=== PATIENT | female | born 1985 | race American Indian/Alaskan Native ===

== ENCOUNTER 2022-02-23 04:39 | Emergency (ER) | payer SELFPAY ==
[2022-02-23] MEDS ORDERED: SODIUM CHLORIDE 0.9% 500 ML 500 ML IV ONE (12:28)
[2022-02-23] MEDS ORDERED: ASPIRIN 325 MG TAB PO ONE (12:28)
[2022-02-23] MEDS ORDERED: ALUM-MAG HYDROXIDE-SIMETHICONE 200-200-20MG/5ML ORAL LIQD 30 ML PO ONE (12:29)
--- NOTE | 2022-02-23 12:59 | XRay Report ---
CHEST 2 VIEWS INDICATION / CLINICAL INFORMATION: Chest Pain. FINDINGS: SUPPORT DEVICES: None. HEART / MEDIASTINUM: No significant abnormality. LUNGS / PLEURA: No significant pulmonary or pleural abnormality. No pneumothorax. ADDITIONAL FINDINGS: No significant additional findings. IMPRESSION: 1. No acute findings. Signer Name: Graham Armando MD Signed: 02/23/2022 12:54 PM Workstation Name: [email or web address]
[2022-02-23 13:37] LABS: Basophils % (Auto) 0.3 % (0.0-1.8); Eosinophils % (Auto) 0.5 % (0.0-4.3); Hematocrit 36.4 % (30.3-42.9); Hemoglobin 12.8 gm/dl (10.1-14.3); Lymphocytes # (Auto) 1.6 K/mm3 (1.2-5.4); Lymphocytes % (Auto) 27.5 % (13.4-35.0); Mean Corpuscular HGB Conc 35 % (30-34); Mean Corpuscular Volume 89 fl (79-97); Monocytes # (Auto) 0.2 K/mm3 (0.0-0.8); Monocytes % (Auto) 4.3 % (0.0-7.3); Platelet Count 297 K/mm3 (140-440); Red Cell Distribution Width 13.8 % (13.2-15.2)
[2022-02-23 13:50] LABS: INR 0.9 (0.87-1.13)
[2022-02-23 13:52] LABS: Alanine Aminotransferase 14 units/L (7-56); Albumin 4.2 g/dL (3.9-5); Blood Urea Nitrogen 4 mg/dL (7-17); Calcium 9.3 mg/dL (8.4-10.2); Hemolysis Index 4
[2022-02-23 14:06] LABS: BUN/Creatinine Ratio 7
--- NOTE | 2022-02-23 14:24 | Emergency Department Report ---
ED Chest Pain HPI - General Chief Complaint: Chest Pain Stated Complaint: CHEST PAIN Time Seen by Provider: 02/23/22 12:23 Source: patient Mode of arrival: Wheelchair Limitations: No Limitations - History of Present Illness Initial Comments: Reporting chest tightness tonight. Denies WARREN. roger is tightness , on and off , has been seen 5 years ago at [facility] and was told she needs echo and stent . pt is on nvega for mental health -: Gradual, week(s) Onset: during rest Pain Location: substernal Pain Radiation: none Severity scale (0 -10): 10 Quality: tightness Consistency: intermittent Improves With: nothing Worsens With: nothing Treatments Prior to Arrival: none - Related Data On Oral Contraceptives: No Home Medications Medication Instructions Recorded Confirmed Last Taken No Known Home Medications [No 02/23/22 02/23/22 Unknown Reported Home Medications] Allergies Allergy/AdvReac Type Severity Reaction Status Date / Time No Known Allergies Allergy Verified 02/23/22 12:28 Heart Score - HEART Score History: Slightly suspicious EKG: Normal Age: < 45 Risk factors: 1-2 risk factors Troponin: < normal limit HEART Score: 1 - EKG Read Time Time EKG Completed: 04:57 EKG Read Time: 04:57 - Critical Actions Critical Actions: 0-3 pts:0.9-1.7%risk of adverse cardiac event.Candidate for talib toth ED Review of Systems ROS: Stated complaint: CHEST PAIN Other details as noted in HPI Constitutional: denies: chills, fever Eyes: denies: eye pain, eye discharge, vision change ENT: denies: ear pain, throat pain Respiratory: denies: cough, shortness of breath, wheezing Cardiovascular: denies: chest pain, palpitations Endocrine: no symptoms reported Gastrointestinal: denies: abdominal pain, nausea, diarrhea Genitourinary: denies: urgency, dysuria, discharge Musculoskeletal: denies: back pain, joint swelling, arthralgia Skin: denies: rash, lesions Neurological: denies: headache, weakness, paresthesias Psychiatric: denies: anxiety, depression Hematological/Lymphatic: denies: easy bleeding, easy bruising ED Past Medical Hx - Past Medical History Previous Medical History?: Yes Hx Hypertension: No Hx CVA: Yes Hx Diabetes: Yes Hx Asthma: Yes - Surgical History Past Surgical History?: No - Social History Smoking Status: Never Smoker Substance Use Type: None - Medications Home Medications: Home Medications Medication Instructions Recorded Confirmed Last Taken Type No Known Home Medications [No 02/23/22 02/23/22 Unknown History Reported Home Medications] ED Physical Exam - General Limitations: No Limitations General appearance: alert, in no apparent distress - Head Head exam: Present: atraumatic, normocephalic - Eye Eye exam: Present: normal appearance - ENT ENT exam: Present: mucous membranes moist - Neck Neck exam: Present: normal inspection - Respiratory Respiratory exam: Present: normal lung sounds bilaterally. Absent: respiratory distress - Cardiovascular Cardiovascular Exam: Present: regular rate, normal rhythm. Absent: systolic murmur, diastolic murmur, rubs, gallop - GI/Abdominal GI/Abdominal exam: Present: soft, normal bowel sounds - Extremities Exam Extremities exam: Present: normal inspection - Back Exam Back exam: Present: normal inspection - Neurological Exam Neurological exam: Present: alert, oriented X3 - Psychiatric Psychiatric exam: Present: normal affect, normal mood - Skin Skin exam: Present: warm, dry, intact, normal color. Absent: rash ED Course Vital Signs 02/23/22 02/23/22 05:33 12:27 Temperature 98 F 98.9 F Pulse Rate 74 77 Respiratory 20 18 Rate Blood Pressure 133/76 Blood Pressure 152/89 [Right] O2 Sat by Pulse 100 97 Oximetry ED Medical Decision Making - Lab Data Result diagrams: 02/23/22 12:53 02/23/22 12:53 - EKG Data -: EKG Interpreted by Md EKG shows normal: sinus rhythm Rate: normal - Radiology Data Radiology results: report reviewed, image reviewed - Medical Decision Making work up nge , low HEART score, will refer to OP card for further work up Critical care attestation.: If time is entered above; I have spent that time in minutes in the direct care of this critically ill patient, excluding procedure time. ED Disposition Clinical Impression: Chest pain, Gastritis Disposition: HOME / SELF CARE / HOMELESS Is pt being admited?: No Does the pt Need Aspirin: No Condition: Stable Instructions: Gastritis, Adult, Nonspecific Chest Pain, Adult Referrals: RICHARD COPELAND MD [Primary Care Provider] - 3-5 Days
[2022-02-23 14:39] VITALS: BP 124/69
--- NOTE | 2022-02-24 13:38 | Electrocardiograph Report ---
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
== END 2022-02-23 14:39 | disposition home or self-care (01) ==
LOC: ED 04:39
DX: K29.70 Gastritis, unspecified, without bleeding (principal); Z79.899 Other long term (current) drug therapy
CPT/HCPCS: 36415; 71046; 80053; 82550; 83690; 84484; 85025; 85610; 93005; 99284; J7040

== ENCOUNTER 2022-02-26 07:48 | Emergency (ER) | payer SELFPAY ==
--- NOTE | 2022-02-26 08:25 | Emergency Department Report ---
ED Abdominal Pain HPI - General Chief Complaint: Arrhythmia/Palpitations Stated Complaint: GENERAL SICKNESS Time Seen by Provider: 02/26/22 08:11 Source: EMS Mode of arrival: Stretcher Limitations: No Limitations - History of Present Illness Initial Comments: 36-year-old female presents with epigastric pain that started last night. Patient reports heavy drinking last night as well including beer, whiskey, and marybel. Patient denies any fever or chills. She has tried Mylanta with some improvement. She also reported that she completed menstrual period yesterday. Patient also mentioned left nipple discomfort. No other modifying or positive factors reported. - Related Data Previous Rx's Medication Instructions Recorded Last Taken Type Famotidine [Pepcid] 20 mg PO BID #30 tablet 02/23/22 Unknown Rx Mag Hydrox/Aluminum Hyd/Simeth 148 ml PO DAILY #120 02/23/22 Unknown Rx [Maalox Advanced Suspension] Omeprazole Magnesium [PriLOSEC Otc] 20 mg PO BID 30 Days #60 tab NS 02/26/22 Unknown Rx Allergies Allergy/AdvReac Type Severity Reaction Status Date / Time No Known Allergies Allergy Verified 02/23/22 12:28 ED Review of Systems ROS: Stated complaint: GENERAL SICKNESS Other details as noted in HPI Comment: All other systems reviewed and negative Cardiovascular: denies: chest pain Gastrointestinal: abdominal pain (Epigastrium) ED Past Medical Hx - Past Medical History Hx Hypertension: No Hx CVA: Yes Hx Diabetes: Yes Hx Asthma: Yes - Social History Smoking Status: Never Smoker Substance Use Type: None - Medications Home Medications: Home Medications Medication Instructions Recorded Confirmed Last Taken Type Famotidine [Pepcid] 20 mg PO BID #30 tablet 02/23/22 Unknown Rx Mag Hydrox/Aluminum Hyd/Simeth 148 ml PO DAILY #120 02/23/22 Unknown Rx [Maalox Advanced Suspension] Omeprazole Magnesium [PriLOSEC Otc] 20 mg PO BID 30 Days #60 tab NS 02/26/22 Unknown Rx ED Physical Exam - General Limitations: No Limitations General appearance: alert, in no apparent distress - Head Head exam: Present: atraumatic, normocephalic, normal inspection - Eye Eye exam: Present: normal appearance Pupils: Present: normal accommodation - ENT ENT exam: Present: normal exam, normal orophraynx - Neck Neck exam: Present: normal inspection, full ROM - Respiratory Respiratory exam: Present: normal lung sounds bilaterally. Absent: respiratory distress - Cardiovascular Cardiovascular Exam: Present: regular rate, normal rhythm, normal heart sounds - GI/Abdominal GI/Abdominal exam: Present: soft, tenderness (Epigastric tenderness), normal bowel sounds - Back Exam Back exam: Present: normal inspection, full ROM - Neurological Exam Neurological exam: Present: alert, altered, oriented X3 - Psychiatric Psychiatric exam: Present: normal affect, normal mood - Skin Skin exam: Present: warm, intact, normal color ED Course Vital Signs 02/26/22 02/26/22 02/26/22 07:57 08:31 10:01 Temperature 98.0 F Pulse Rate 124 H 105 H 102 H Respiratory 16 14 22 Rate Blood Pressure 131/95 139/95 Blood Pressure 142/94 [Right] O2 Sat by Pulse 97 99 100 Oximetry 02/26/22 02/26/22 02/26/22 10:26 10:32 12:01 Temperature Pulse Rate 98 H 102 H Respiratory 18 24 Rate Blood Pressure 131/96 Blood Pressure 130/96 [Right] O2 Sat by Pulse 99 100 100 Oximetry - Reevaluation(s) Reevaluation #1: 02/26/22 08:25 Here with abdominal pain --but noted with epigastric tenderness with this patient recent heavy alcohol use has symptoms could be as a result of pancreatitis so we will go ahead and get CBC, CMP, including lipase with urinalysis and urine drug screen. Given GI cocktail and will continue to monitor. However because of the proximity of her pain we will go ahead and get EKG, and troponin to rule out any cardiac involvement. Reevaluation #2: 02/26/22 12:26 Patient labs reviewed and noted to be within normal limits and reassuring including cardiac enzyme and EKG only shows sinus tachycardia. Also noted with normal lipase with epigastric tenderness this is likely gastritis from alcohol drink. We will go ahead and discharge patient home on omeprazole and warning to cut back on alcohol drink with close follow-up with your primary doctor. ED Medical Decision Making - Lab Data Result diagrams: 02/26/22 09:07 02/26/22 09:07 Critical care attestation.: If time is entered above; I have spent that time in minutes in the direct care of this critically ill patient, excluding procedure time. ED Disposition Clinical Impression: Epigastric abdominal pain Gastritis Qualifiers: Gastritis type: alcoholic Chronicity: unspecified Gastritis bleeding: presence of bleeding unspecified Qualified Code(s): K29.20 - Alcoholic gastritis without bleeding Disposition: 01 HOME / SELF CARE / HOMELESS Is pt being admited?: No Does the pt Need Aspirin: No Condition: Stable Instructions: Gastritis, Adult, [id number] Additional Instructions: Please cut back on alcohol drink as this is likely contributing to your symptoms Increase your daily fluid to help your hydration Take your omeprazole as prescribed to help your symptoms Avoid heavy fatty meals as this could worsen your symptoms It is important that you call and follow-up with your primary doctor in the next 3 to 5 days for progress Please do not hesitate to call or return to emergency room if your symptoms worsen Prescriptions: Omeprazole Magnesium [PriLOSEC Otc] 20 mg PO BID 30 Days #60 tab NS Time of Disposition: 12:30
[2022-02-26] MEDS ORDERED: ALUM-MAG HYDROXIDE-SIMETHICONE 200-200-20MG/5ML ORAL LIQD 30 ML PO ONE (09:05)
[2022-02-26] MEDS ORDERED: LIDOCAINE VISCOUS 2% 15 ML ORAL LIQD PO ONE ×2 (09:06→09:18)
[2022-02-26] MEDS ORDERED: PHENobarbital 15 MG TAB PO NR (09:15)
[2022-02-26 09:57] LABS: Basophils % (Auto) 0.7 % (0.0-1.8); Eosinophils # (Auto) 0.1 K/mm3 (0.0-0.4); Eosinophils % (Auto) 1.6 % (0.0-4.3); Hemoglobin 13.6 gm/dl (10.1-14.3); Lymphocytes # (Auto) 1.7 K/mm3 (1.2-5.4); Lymphocytes % (Auto) 33.3 % (13.4-35.0); Mean Corpuscular HGB Conc 33 % (30-34); Mean Corpuscular Volume 90 fl (79-97); Monocytes # (Auto) 0.2 K/mm3 (0.0-0.8); Monocytes % (Auto) 3.7 % (0.0-7.3); Platelet Count 320 K/mm3 (140-440); Red Blood Count 4.56 M/mm3 (3.65-5.03); Red Cell Distribution Width 14.3 % (13.2-15.2)
[2022-02-26 10:07] LABS: INR 0.82 (0.87-1.13); Partial Thromboplastin Time 25.1 Sec. (24.2-36.6)
[2022-02-26 10:19] LABS: Alanine Aminotransferase 16 units/L (7-56); Albumin 4.2 g/dL (3.9-5); Blood Urea Nitrogen 6 mg/dL (7-17); Calcium 9.7 mg/dL (8.4-10.2); Hemolysis Index 4
[2022-02-26 10:24] LABS: BUN/Creatinine Ratio 10
[2022-02-26 10:24] LABS: Bilirubin,Urine NEG (Negative); Blood,Urine NEG (Negative); Color,Urine Straw (Yellow); Mucus,Urine FEW /HPF; Protein,Urine <15 mg/dL mg/dL (Negative); RBC,Urine < 1.0 /HPF (0.0-6.0); Urobilinogen,Urine < 2.0 mg/dL (<2.0)
[2022-02-26 10:27] LABS: HCG Qualitative,Urine Negative (Negative)
[2022-02-26 10:29] LABS: Amphetamine Screen,Urine Negative; Benzodiazepines Screen,Urine Negative; Cannabinoid Screen,Urine Negative; Methadone Screen,Urine Negative; Opiate Screen,Urine Negative
[2022-02-26 11:36] LABS: Cocaine Screen,Urine Positive
[2022-02-26 12:06] VITALS: BP 131/96
--- NOTE | 2022-02-27 10:48 | Electrocardiograph Report ---
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
== END 2022-02-26 13:15 | disposition home or self-care (01) ==
LOC: ED 07:48
DX: K29.70 Gastritis, unspecified, without bleeding (principal); R10.13 Epigastric pain; Z86.73 Personal history of transient ischemic attack (TIA), and cerebral infarction without residual deficits; E11.9 Type 2 diabetes mellitus without complications; J45.909 Unspecified asthma, uncomplicated; Z79.899 Other long term (current) drug therapy
CPT/HCPCS: 36415; 80053; 80307; 80320; 81001; 81025; 83690; 83880; 84484; 85025; 85610; 85730; 93005; 99284; G0480

== ENCOUNTER 2022-03-24 07:46 | Emergency (ER) | payer SELFPAY ==
[2022-03-24 08:11] VITALS: BP 148/89
--- NOTE | 2022-03-24 20:17 | Electrocardiograph Report ---
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
== END 2022-03-24 17:34 | disposition left against medical advice (07) ==
LOC: ED 07:46
DX: G20 Parkinson's disease (principal); Z53.21 Procedure and treatment not carried out due to patient leaving prior to being seen by health care provider
CPT/HCPCS: 93005

== ENCOUNTER 2022-05-04 02:38 | Emergency (ER) | payer SELFPAY ==
[2022-05-04 03:59] LABS: Bilirubin,Urine NEG (Negative); Blood,Urine NEG (Negative); Color,Urine Yellow (Yellow); Urobilinogen,Urine < 2.0 mg/dL (<2.0)
[2022-05-04 04:04] LABS: Bacteria,Urine 1+ /HPF (Negative); Mucus,Urine 1+ /HPF
[2022-05-04 04:26] LABS: Alanine Aminotransferase 10 units/L (7-56); Albumin 3.5 g/dL (3.9-5); BUN/Creatinine Ratio 9; Blood Urea Nitrogen 7 mg/dL (7-17); Calcium 9.1 mg/dL (8.4-10.2); Hemolysis Index 7
[2022-05-04 04:45] LABS: Basophils # (Auto) 0.1 K/mm3 (0.0-0.1); Basophils % (Auto) 2.3 % (0.0-1.8); Eosinophils # (Auto) 0.1 K/mm3 (0.0-0.4); Eosinophils % (Auto) 1.8 % (0.0-4.3); Hematocrit 37.9 % (30.3-42.9); Hemoglobin 12.1 gm/dl (10.1-14.3); Lymphocytes # (Auto) 1.3 K/mm3 (1.2-5.4); Lymphocytes % (Auto) 23.6 % (13.4-35.0); Mean Corpuscular HGB Conc 32 % (30-34); Mean Corpuscular Volume 88 fl (79-97); Monocytes # (Auto) 0.3 K/mm3 (0.0-0.8); Monocytes % (Auto) 5.9 % (0.0-7.3); Platelet Count 199 K/mm3 (140-440); Red Blood Count 4.32 M/mm3 (3.65-5.03); Red Cell Distribution Width 16.1 % (13.2-15.2)
[2022-05-04] MEDS ORDERED: PANTOPRAZOLE 40 MG TAB PO ONE (11:43)
--- NOTE | 2022-05-04 11:44 | Emergency Department Report ---
ED General Adult HPI - General Chief complaint: Abdominal Pain Stated complaint: STOMACH SHAKING Time Seen by Provider: 05/04/22 11:35 Source: patient, RN notes reviewed Mode of arrival: Stretcher Limitations: No Limitations - History of Present Illness Initial comments: The patient was evaluated in the emergency department for symptoms described in the history of present illness. He/she was evaluated in the context of the global COVID-19 pandemic, which necessitated consideration that the patient might be at risk for infection with the virus that causes COVID-19. Institutional protocols and algorithms that pertain to the evaluation of patients at risk for COVID-19 are in a state of rapid change based on information released by regulatory bodies including the CDC and federal and state organizations. These policies and algorithms were followed during the patient's care in the emergency department. Please note that these policies, procedures and recommendations changed on a rapid basis. This is a 36-year-old female who presents to the ER today with a complaint of epigastric and left upper quadrant aching and shaking for the past few months. She denies headache, neck pain, chest pain, vomiting, shortness of breath and dysuria. She denies travel, surgery, immobilization, DVT and pulmonary embolism risk factors. She has been seen in this department in the past for similar symptoms, and presumptively diagnosed with GERD/gastritis and started on proton pump inhibitors. She has not participated in the diet lifestyle modifications that were previously recommended for her. -: Gradual, days(s), week(s), month(s) Location: abdomen Radiation: non-radiation Consistency: intermittent Improves with: none Worsens with: none Associated Symptoms: denies other symptoms - Related Data Previous Rx's Medication Instructions Recorded Last Taken Type Famotidine [Pepcid] 20 mg PO BID #30 tablet 02/23/22 Unknown Rx Mag Hydrox/Aluminum Hyd/Simeth 148 ml PO DAILY #120 02/23/22 Unknown Rx [Maalox Advanced Suspension] Nitrofurantoin Hendricks/M-Cryst 100 mg PO Q12HR #14 capsule 05/04/22 Unknown Rx [Macrobid CAP] Omeprazole Magnesium [PriLOSEC Otc] 20 mg PO BID 30 Days #60 tab NS 05/04/22 Unknown Rx Allergies Allergy/AdvReac Type Severity Reaction Status Date / Time No Known Allergies Allergy Verified 02/23/22 12:28 ED Review of Systems ROS: Stated complaint: STOMACH SHAKING Other details as noted in HPI Comment: All other systems reviewed and negative Gastrointestinal: as per HPI ED Past Medical Hx - Past Medical History Previous Medical History?: Yes Hx Hypertension: No Hx CVA: Yes Hx Diabetes: Yes Hx Psychiatric Treatment: Yes (Schizophrenia) Hx Asthma: Yes - Surgical History Past Surgical History?: No - Social History Smoking Status: Current Every Day Smoker - Medications Home Medications: Home Medications Medication Instructions Recorded Confirmed Last Taken Type Famotidine [Pepcid] 20 mg PO BID #30 tablet 02/23/22 Unknown Rx Mag Hydrox/Aluminum Hyd/Simeth 148 ml PO DAILY #120 02/23/22 Unknown Rx [Maalox Advanced Suspension] Nitrofurantoin Hendricks/M-Cryst 100 mg PO Q12HR #14 capsule 05/04/22 Unknown Rx [Macrobid CAP] Omeprazole Magnesium [PriLOSEC Otc] 20 mg PO BID 30 Days #60 tab NS 05/04/22 Unknown Rx ED Physical Exam - General Limitations: No Limitations General appearance: alert, in no apparent distress - Head Head exam: Present: atraumatic, normocephalic - Eye Eye exam: Present: normal appearance, EOMI. Absent: nystagmus - ENT ENT exam: Present: normal exam, normal orophraynx, mucous membranes moist, normal external ear exam - Neck Neck exam: Present: normal inspection, full ROM. Absent: tenderness, meningismus - Respiratory Respiratory exam: Present: normal lung sounds bilaterally. Absent: respiratory distress, wheezes, rales, rhonchi, stridor, decreased breath sounds - Cardiovascular Cardiovascular Exam: Present: regular rate, normal rhythm, normal heart sounds. Absent: bradycardia, tachycardia, irregular rhythm, systolic murmur, diastolic murmur, rubs, gallop - GI/Abdominal GI/Abdominal exam: Present: soft. Absent: distended, tenderness, guarding, rebound, rigid, pulsatile mass - Extremities Exam Extremities exam: Present: normal inspection, full ROM, normal capillary refill, other (2+ pulses noted in the bilateral upper and lower extremities. There is no palpable cord. negative Homans sign. Muscular compartments are soft. The pelvis is stable.). Absent: pedal edema, calf tenderness - Back Exam Back exam: Present: normal inspection, full ROM. Absent: tenderness, CVA tenderness (R), CVA tenderness (L), paraspinal tenderness, vertebral tenderness - Neurological Exam Neurological exam: Present: alert, oriented X3, normal gait, other (No facial droop. Tongue midline. Extraocular movements intact bilaterally. Facial sensation intact to light touch in V1, V2, V3 distribution bilaterally. 5 and a 5 strength in 4 extremities. Sensation intact to light touch in 4 extremities .). Absent: motor sensory deficit - Psychiatric Psychiatric exam: Present: normal affect, normal mood - Skin Skin exam: Present: warm, dry, intact, normal color. Absent: rash ED Course Vital Signs 05/04/22 05/04/22 05/04/22 02:39 11:44 12:47 Temperature 99.3 F 98.6 F Pulse Rate 98 H 84 Respiratory 16 Rate Blood Pressure 143/100 [Left] O2 Sat by Pulse 100 Oximetry O2 Sat by Pulse 99 Oximetry [ Digit-Finger] - Pulse Oximetry Interpretation Digit-Finger Initial Pulse Oximetry Readin O2 Sat by Pulse Oximetry: 99 Actions Taken: none ED Medical Decision Making - Lab Data Result diagrams: 05/04/22 03:38 05/04/22 03:38 Vital Signs 05/04/22 05/04/22 02:39 11:44 Temperature 99.3 F 98.6 F Pulse Rate 98 H 84 Respiratory 16 Rate Blood Pressure 143/100 [Left] O2 Sat by Pulse 100 Oximetry Lab Results 05/04/22 05/04/22 05/04/22 Range/Units 03:19 03:38 03:38 WBC 5.3 (4.5-11.0) K/mm3 RBC 4.32 (3.65-5.03) M/mm3 Hgb 12.1 (10.1-14.3) gm/dl Hct 37.9 (30.3-42.9) % MCV 88 (79-97) fl MCH 28 (28-32) pg MCHC 32 (30-34) % RDW 16.1 H (13.2-15.2) % Plt Count 199 (140-440) K/mm3 Lymph % (Auto) 23.6 (13.4-35.0) % Hendricks % (Auto) 5.9 (0.0-7.3) % Eos % (Auto) 1.8 (0.0-4.3) % Baso % (Auto) 2.3 H (0.0-1.8) % Lymph # (Auto) 1.3 (1.2-5.4) K/mm3 Hendricks # (Auto) 0.3 (0.0-0.8) K/mm3 Eos # (Auto) 0.1 (0.0-0.4) K/mm3 Baso # (Auto) 0.1 (0.0-0.1) K/mm3 Seg Neutrophils % 66.4 (40.0-70.0) % Seg Neutrophils # 3.5 (1.8-7.7) K/mm3 Sodium 135 L (137-145) mmol/L Potassium 4.2 (3.6-5.0) mmol/L Chloride 100.5 (98-107) mmol/L Carbon Dioxide 24 (22-30) mmol/L Anion Gap 15 mmol/L BUN 7 (7-17) mg/dL Creatinine 0.8 (0.6-1.2) mg/dL Estimated GFR > 60 ml/min BUN/Creatinine Ratio 9 % Glucose 185 H (65-100) mg/dL Calcium 9.1 (8.4-10.2) mg/dL Total Bilirubin < 0.20 (0.1-1.2) mg/dL AST 12 (5-40) units/L ALT 10 (7-56) units/L Alkaline Phosphatase 97 (35-129) units/L Total Protein 6.9 (6.3-8.2) g/dL Albumin 3.5 L (3.9-5) g/dL Albumin/Globulin Ratio 1.0 % Urine Color Yellow (Yellow) Urine Turbidity Slightly-cloudy (Clear) Urine pH 5.0 (5.0-7.0) Ur Specific Astor 1.015 (1.003-1.030) Urine Protein 30 mg/dl (Negative) mg/dL Urine Glucose (UA) Neg (Negative) mg/dL Urine Ketones Neg (Negative) mg/dL Urine Blood Neg (Negative) Urine Nitrite Neg (Negative) Urine Bilirubin Neg (Negative) Urine Urobilinogen < 2.0 (<2.0) mg/dL Ur Leukocyte Esterase Lg (Negative) Urine WBC (Auto) 61.0 H (0.0-6.0) /HPF Urine RBC (Auto) 3.0 (0.0-6.0) /HPF U Epithel Cells (Auto) 6.0 (0-13.0) /HPF Urine Bacteria (Auto) 1+ (Negative) /HPF Ur Transition Epith Cell 3 /HPF Urine Mucus 1+ /HPF Urine HCG, Qual (Negative) 05/04/22 Range/Units 11:43 WBC (4.5-11.0) K/mm3 RBC (3.65-5.03) M/mm3 Hgb (10.1-14.3) gm/dl Hct (30.3-42.9) % MCV (79-97) fl MCH (28-32) pg MCHC (30-34) % RDW (13.2-15.2) % Plt Count (140-440) K/mm3 Lymph % (Auto) (13.4-35.0) % Hendricks % (Auto) (0.0-7.3) % Eos % (Auto) (0.0-4.3) % Baso % (Auto) (0.0-1.8) % Lymph # (Auto) (1.2-5.4) K/mm3 Hendricks # (Auto) (0.0-0.8) K/mm3 Eos # (Auto) (0.0-0.4) K/mm3 Baso # (Auto) (0.0-0.1) K/mm3 Seg Neutrophils % (40.0-70.0) % Seg Neutrophils # (1.8-7.7) K/mm3 Sodium (137-145) mmol/L Potassium (3.6-5.0) mmol/L Chloride (98-107) mmol/L Carbon Dioxide (22-30) mmol/L Anion Gap mmol/L BUN (7-17) mg/dL Creatinine (0.6-1.2) mg/dL Estimated GFR ml/min BUN/Creatinine Ratio % Glucose (65-100) mg/dL Calcium (8.4-10.2) mg/dL Total Bilirubin (0.1-1.2) mg/dL AST (5-40) units/L ALT (7-56) units/L Alkaline Phosphatase (35-129) units/L Total Protein (6.3-8.2) g/dL Albumin (3.9-5) g/dL Albumin/Globulin Ratio % Urine Color (Yellow) Urine Turbidity (Clear) Urine pH (5.0-7.0) Ur Specific Astor (1.003-1.030) Urine Protein (Negative) mg/dL Urine Glucose (UA) (Negative) mg/dL Urine Ketones (Negative) mg/dL Urine Blood (Negative) Urine Nitrite (Negative) Urine Bilirubin (Negative) Urine Urobilinogen (<2.0) mg/dL Ur Leukocyte Esterase (Negative) Urine WBC (Auto) (0.0-6.0) /HPF Urine RBC (Auto) (0.0-6.0) /HPF U Epithel Cells (Auto) (0-13.0) /HPF Urine Bacteria (Auto) (Negative) /HPF Ur Transition Epith Cell /HPF Urine Mucus /HPF Urine HCG, Qual Negative (Negative) - Medical Decision Making Differential diagnosis, include but not limited to: GERD, gastritis, hiatal hernia, asymptomatic bacteriuria Assessment and plan: 36-year-old female with recurrent complaints of left upper quadrant abdominal pain. She is not currently tachycardic, tachypneic or hypoxic, she denies DVT and pulmonary embolism risk factors and she is low risk by Wells criteria for pulmonary embolism, and she is PERC negative. This is her third or fourth visit for very similar complaints. Her physical examination is unremarkable. Her laboratory evaluation is unremarkable. She appears to have asymptomatic bacteriuria with pyuria. Again reiterated need for diet and lifestyle modification. Patient is clinically sober at this time. On multiple evaluations, resting comfortably in her stretcher in no acute distress, with abdomen soft and benign, without rebound, guarding or peritoneal signs. Recent EKGs are reviewed and appreciated, as are recent x-rays. Patient is observed in this department for hours without clinical decompensation. She is stable to follow-up as an outpatient with diet and lifestyle modifications Critical care attestation.: If time is entered above; I have spent that time in minutes in the direct care of this critically ill patient, excluding procedure time. ED Disposition Clinical Impression: Left upper quadrant abdominal pain, Bacteriuria with pyuria Disposition: HOME / SELF CARE / HOMELESS Is pt being admited?: No Does the pt Need Aspirin: No Condition: Good Instructions: Abdominal Pain (ED) Additional Instructions: Please avoid consumption of Motrin, ibuprofen, Naprosyn, Aleve, alcohol, tobacc o, smoke products and recreational drugs. Drinks 6 cups of water per day, and consume plenty of fiber, vegetables, lean protein, and avoid heavy and spicy foods. Avoid processed foods. Consume plenty of fiber, and vegetables. May take the prescribed medication as needed and directed, and should take the antibiotics as directed. Follow-up with a primary care doctor within the next month. Please return to the emergency room right away with new pain, worsened pain, migration of pain, projectile vomiting, change in mental status, confusion, inability tolerate liquid feeds, new, worsened or different symptoms not present on the initial emergency room evaluation May also take [id number] Pepcid, famotidine, or Tylenol as needed for physical pain Prescriptions: Nitrofurantoin Hendricks/M-Cryst [Macrobid CAP] 100 mg PO Q12HR #14 capsule Omeprazole Magnesium [PriLOSEC Otc] 20 mg PO BID 30 Days #60 tab NS Referrals: [facility] [Provider Group] - 3-5 Days [facility] [Outside] - 3-5 Days Forms: Work/School Release Form(ED)
[2022-05-04 11:46] LABS: HCG Qualitative,Urine Negative (Negative)
[2022-05-04 11:48] VITALS: BP 143/100
== END 2022-05-04 14:20 | disposition home or self-care (01) ==
LOC: ED 02:38
DX: R10.12 Left upper quadrant pain (principal); R82.71 Bacteriuria; R82.81 Pyuria; Z86.73 Personal history of transient ischemic attack (TIA), and cerebral infarction without residual deficits; E11.9 Type 2 diabetes mellitus without complications; F20.9 Schizophrenia, unspecified; J45.909 Unspecified asthma, uncomplicated; F17.290 Nicotine dependence, other tobacco product, uncomplicated
CPT/HCPCS: 36415; 80053; 81001; 81025; 85025; 87086; 99284

== ENCOUNTER 2022-05-06 00:32 | Emergency (ER) | payer MEDICAID ==
[2022-05-06 01:23] VITALS: BP 153/96
== END 2022-05-06 03:30 | disposition left against medical advice (07) ==
LOC: ED 00:32
DX: R68.83 Chills (without fever) (principal); Z53.21 Procedure and treatment not carried out due to patient leaving prior to being seen by health care provider

== ENCOUNTER 2022-05-08 04:43 | Emergency (ER) | payer MEDICAID ==
[2022-05-08 05:40] VITALS: BP 148/96
== END 2022-05-08 08:15 | disposition left against medical advice (07) ==
LOC: ED 04:43
DX: R10.9 Unspecified abdominal pain (principal); Z53.21 Procedure and treatment not carried out due to patient leaving prior to being seen by health care provider

== ENCOUNTER 2022-07-10 04:31 | Emergency (ER) | payer SELFPAY ==
[2022-07-10 04:51] VITALS: BP 150/82
== END 2022-07-10 10:56 | disposition left against medical advice (07) ==
LOC: ED 04:31
DX: R10.9 Unspecified abdominal pain (principal); R73.9 Hyperglycemia, unspecified; Z53.21 Procedure and treatment not carried out due to patient leaving prior to being seen by health care provider